=== PATIENT | male | born 1950 | race Caucasian/White ===

== ENCOUNTER 2016-09-29 17:05 | Emergency (ER) | payer MEDICARE ==
[~2016-09-29 17:05] MED LIST: Sodium Chloride 0.9% 1,000 ML BAG ONE; Sodium Chloride 0.9% 100 ML BAG ONE
[2016-09-29 17:36] LABS: #Neutrophils 12.6 thou/uL (1.40-6.50); %Basophils 0.8 % (0.0-1.0); %Eosinophils 1.5 % (0.0-10.0); %Lymphocytes 11.8 % (21.0-51.0); %Monocytes 6.9 % (0.0-10.0); Hemoglobin 18.9 g/dL (14.0-18.0); INR-International Normal Ratio 1.1; Mean Corpuscular HGB CONC 35.8 g/dL (32.0-36.0); Mean Corpuscular Hemoglobin 31.4 pg (27.0-31.0); Mean Corpuscular Volume 87.7 fL (80.0-94.0); Mean Platelet Volume 10.1 fL (7.4-10.4); PTT 30.9 SEC (22.9-36.1); Platelet Count 176 thou/uL (130-400); Prothrombin Time 14.7 SEC (12.0-14.7); RBC Distribution Width 11.9 % (11.5-14.5); Red Blood Cell (RBC) Count 6.02 mill/uL (4.70-6.10); White Blood Cell (WBC) Count 15.9 thou/uL (4.8-10.8)
[2016-09-29 17:37] LABS: #Basophils 0.1 thou/uL (0.0-0.2); #Eosinphils 0.2 thou/uL (0.0-0.7); #Lymphocytes 1.9 thou/uL (1.20-3.40); #Monocytes 1.1 thou/uL (0.11-0.59)
[2016-09-29 17:49] LABS: ALT (SGPT) 37 U/L (0-55); AST (SGOT) 19 U/L (5-34); Albumin 4.5 g/dL (3.4-4.8); Alkaline Phosphatase 62 U/L (40-150); Anion Gap 21 mmol/L (10-20); BUN (Urea Nitrogen) 18 mg/dL (8.4-25.7); Bilirubin, Total 0.6 mg/dL (0.2-1.2); Calc. Creatinine Clearance 0 mL/min (70-130); Calcium 9.5 mg/dL (7.8-10.44); Carbon Dioxide 21 mmol/L (23-31); Chloride 101 mmol/L (98-107); Estimated GFR-MDRD 82; Globulin 2.3 g/dL (2.4-3.5); Glucose 251 mg/dL (80-115); Potassium 3.9 mmol/L (3.5-5.1); Protein, Total 6.8 g/dL (5.8-8.1); Sodium 139 mmol/L (136-145)
[2016-09-29 17:57] LABS: CKMB 4.6 ng/mL (0-6.6); Troponin I Less than 0.010 ng/mL (< 0.028)
--- NOTE | 2016-09-29 18:25 | CT ---
NONCONTRAST CT HEAD INDICATIONS: Stroke. FINDINGS: There is parenchymal atrophy without evidence of intracranial hemorrhage, mass effect, or midline sh ift. Compensatory dilatation of the ventricular system is noted. Age indeterminate lacunar infarcti on is seen within the left cerebellar hemisphere. IMPRESSION: No acute intracranial hemorrhage or mass effect. 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 Telephone call placed to Dr. Mcgee at 1719 hours on 09/29/2016. CODE CR POS: [id number]
--- NOTE | 2016-09-29 18:44 | RAD ---
CHEST ONE VIEW HISTORY: Stroke. COMPARISON: Chest, one view, 03/19/2014. FINDINGS: The heart size is enlarged, although this may be sequela of technique. The lungs are hypoinflated w ith vascular crowding. No focal pneumothorax, consolidation, or large effusion. IMPRESSION: Lung hypoinflation with vascular crowding and magnification of the cardiac silhouette. POS: [facility]
== END 2016-09-29 18:13 | disposition short-term general hospital (02) ==
LOC: MADERS 17:05
DX: I63.9 Cerebral infarction, unspecified (principal); I48.91 Unspecified atrial fibrillation; I10 Essential (primary) hypertension; E11.9 Type 2 diabetes mellitus without complications; F41.9 Anxiety disorder, unspecified; Z87.442 Personal history of urinary calculi; Z79.82 Long term (current) use of aspirin; Z79.84 Long term (current) use of oral hypoglycemic drugs; Z79.01 Long term (current) use of anticoagulants; Z79.899 Other long term (current) drug therapy
CPT/HCPCS: 36415; 36416; 70450; 71010; 80053; 82553; 84484; 85025; 85610; 85730; 93005; 94760; 96365; 96376; J7050